=== PATIENT | male | born 1955 | race Caucasian/White ===

== ENCOUNTER 2018-11-20 21:40 | Emergency (ER) | payer BC ==
--- NOTE | 2018-11-20 22:03 | EDM.PDOC ---
ED HPI GENERAL MEDICAL PROBLEM - General Chief Complaint: ENT Problem Stated Complaint: cone from ear piece stuck in ear Time Seen by Provider: 11/20/18 21:50 Source of Information: Reports: Patient History Limitations: Reports: No Limitations - History of Present Illness INITIAL COMMENTS - FREE TEXT/NARRATIVE: 53-year-old male presents to the ED with a foreign body in his right ear canal. He states it's a malleable piece of rubber that fits onto his hearing aid that fits into his ear. He had taken his. Particularly noted as it has a filter in it and thought he had it in adequate position. However when he took his hearing aid out tonight the piece of malleable rubber stayed within his right ear canal. His attempted to remove at home with a set of tweezers but was unsuccessful. 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) - Related Data Allergies Allergy/AdvReac Type Severity Reaction Status Date / Time gemfibrozil Allergy Cannot Verified 11/20/18 21:52 Remember lisinopril Allergy Swelling Verified 11/20/18 21:58 Htxdhxj-Yix-Kyx Reductase Allergy Cannot Verified 11/20/18 21:52 Inhibitor Remember oxycodone AdvReac Anxiety Verified 11/20/18 21:52 pregabalin AdvReac Depression Verified 11/20/18 21:52 Past Medical History HEENT History: Reports: Hard of Hearing (Wears bilateral hearing aids.) Cardiovascular History: Reports: High Cholesterol, Hypertension, Other (See Below) (Hypertriglyceridemia) Social & Family History - Living Situation & Occupation Living situation: Reports: Occupation: Employed ED ROS ENT - Review of Systems Review Of Systems: See Below Constitutional: Denies: Fever, Chills, Malaise, Weakness, Fatigue HEENT: Reports: Ear Pain (Foreign body sensation right ear canal) Respiratory: Reports: No Symptoms Cardiovascular: Reports: No Symptoms Endocrine: Reports: No Symptoms GI/Abdominal: Reports: No Symptoms : Reports: Frequency, Other (Nocturia 2) Musculoskeletal: Reports: No Symptoms Skin: Reports: No Symptoms Neurological: Reports: No Symptoms Psychiatric: Reports: No Symptoms ED EXAM, ENT - Physical Exam Exam: See Below Exam Limited By: No Limitations General Appearance: Alert, WD/WN, No Apparent Distress Ears: Other (Examination of his right ear reveals a black to hansen foreign body went sideways in the mid and your canal. It matches the piece off of his left hearing aid which she showed me.) ED ENT PROCEDURES - Foreign Body Removal Consent Obtained: Patient Foreign Body Other Location Comment:: Malleable piece of rubber from the end of his hearing aid wedged in his right ear canal. Removed with the aid of a Elizabeth retractor. Anesthesia Type: None Course - Vital Signs Last Recorded V/S: Last Vital Signs Temp 36.2 C 11/20/18 21:50 Pulse 92 11/20/18 21:50 Resp 20 11/20/18 21:50 BP 167/93 H 11/20/18 21:50 Pulse Ox 95 11/20/18 21:50 - Radiology Interpretation Free Text/Narrative:: 63-year-old male presents to the ED with foreign body sensation in his right ear. He is aware that the malleable piece of rubber that fits on the end of his hearing aid came off and stayed within his ear canal when he removed his hearing aid tonight before bed. His respiratory treatment at home and was unsuccessful. On examination there is a grayish to blackish foreign body wedged sideways in the right ear canal. To remove it with a 20-gauge catheter line in warm water failed. I therefore was able to remove it on third attempt with a elizabeth retractor. Also removed a fair amount of earwax. Patient tolerated procedure well. No further treatment required Departure - Departure Time of Disposition: 22:01 Disposition: Home, Self-Care 01 Condition: Fair Clinical Impression: Acute foreign body of right ear canal Qualifiers: Encounter type: initial encounter Qualified Code(s): T16.1XXA - Foreign body in right ear, initial encounter - Discharge Information Referrals: Juana Vazquez MD [Primary Care Provider] - Forms: ED Department Discharge Additional Instructions: Evaluation the emergent tonight in regards to form body embedded in the right ear canal. The form body is a malleable piece of rubber that fits on the end of ear hearing aid. As you identified it came off of the hearing aid and became wedged in your right ear canal. I was able to visualize it but irrigation would not remove it. I was able to remove it with the aid of a special retractor made fro removing foreign bodies from ears and noses . No further treatment is required.
== END 2018-11-20 22:14 | disposition home or self-care (01) ==
LOC: JD.ED 21:40
DX: T16.1XXA Foreign body in right ear, initial encounter (principal); E78.00 Pure hypercholesterolemia, unspecified; I10 Essential (primary) hypertension; W45.8XXA Other foreign body or object entering through skin, initial encounter
CPT/HCPCS: 69200; 99282; 99282-25

== ENCOUNTER 2022-01-28 06:59 | Day surgery (SDC) | payer BC ==
[~2022-01-28 06:59] MED LIST: Cefuroxime 10 MG/ML SYRINGE EYELF SCH; Lidocaine 1% PF 2 ML SDV INJECT SCH; Pilocarpine 4% Ophth Soln 15 ML Bot EYELF SCH
[2022-01-28] MEDS: Polymyxin B/Trimethoprim 10 ML Bottle EYELF SCH ×3 (07:18→08:27)
[2022-01-28] MEDS: Brimonidine 0.2% Ophth Soln 5 ML Bottle EYELF SCH ×3 (07:24→08:27)
[2022-01-28] MEDS: Phenylephrine 2.5% Ophth Soln 2 ML Bot EYELF SCH ×5 (07:27→08:00)
[2022-01-28] MEDS: Tropicamide 1% Ophth Soln 15 ML Bottle EYELF SCH ×4 (07:30→07:50)
[2022-01-28] MEDS: Tetracaine HCl/PF 0.5% 4 ML Bottle EYEBOTH SCH ×2 (07:54→08:08)
== END 2022-01-28 08:38 | disposition home or self-care (01) ==
LOC: JD.SDS 06:59
PROVIDERS: ATTEND Ophthalmology
DX: E11.36 Type 2 diabetes mellitus with diabetic cataract (principal); H25.813 Combined forms of age-related cataract, bilateral; H31.012 Macula scars of posterior pole (postinflammatory) (post-traumatic), left eye; H43.813 Vitreous degeneration, bilateral; H02.831 Dermatochalasis of right upper eyelid; H02.834 Dermatochalasis of left upper eyelid; H16.223 Keratoconjunctivitis sicca, not specified as Sjogren's, bilateral; D31.31 Benign neoplasm of right choroid; H21.81 Floppy iris syndrome; H21.42 Pupillary membranes, left eye; E78.00 Pure hypercholesterolemia, unspecified; I10 Essential (primary) hypertension; Z79.899 Other long term (current) drug therapy; Z88.8 Allergy status to other drugs, medicaments and biological substances
CPT/HCPCS: 66982; 82947; J0697; C1780

== ENCOUNTER 2022-08-27 09:30 | Emergency (ER) | payer BC ==
[2022-08-27] MEDS ORDERED: Aspirin 81 MG Tab.Chew PO ONE (09:42)
[2022-08-27] MEDS ORDERED: Sodium Chloride 0.9% 10 ML Syringe FLUSH PRN ×2 (09:42→09:49)
[2022-08-27] MEDS ORDERED: Iopamidol 755 Mg/ML 100 ML Bottle IVPUSH ONE (09:49)
[2022-08-27] MEDS ORDERED: LORazepam 2 MG/ML SDV IVPUSH ONE (09:55)
[2022-08-27] MEDS ORDERED: Sodium Chloride 0.9% 100 ML IV SCH (10:00)
[2022-08-27 11:17] LABS: CORONAVIRUS COVID-19 NAA NEGATIVE (NEGATIVE)
== END 2022-08-27 12:25 | disposition home or self-care (01) ==
LOC: JD.ED 09:30
DX: R07.89 Other chest pain (principal); E87.1 Hypo-osmolality and hyponatremia; I10 Essential (primary) hypertension; E11.9 Type 2 diabetes mellitus without complications; Z88.6 Allergy status to analgesic agent; Z88.5 Allergy status to narcotic agent; Z88.8 Allergy status to other drugs, medicaments and biological substances; Z90.49 Acquired absence of other specified parts of digestive tract; Z20.822 Contact with and (suspected) exposure to COVID-19
CPT/HCPCS: 0241U; 36415; 71275; 80053; 84484; 85025; 93005; 93971; 96374; 99285; A9270; J2060; Q9967